=== PATIENT | male | born 1990 | race African-American/Black ===

== ENCOUNTER 2018-07-14 10:52 | Day surgery (SDC) | payer OTHER ==
[2018-07-08 11:07] VITALS: BMI 24.3
[2018-07-14] MEDS ORDERED: CEFAZOLIN 2 GM/50 ML BAG ONE (11:15)
[2018-07-14] MEDS ORDERED: Midazolam HCl 2 mg/2 ml Vial ONE (11:15)
[2018-07-14] MEDS ORDERED: Fentanyl 100 MCG/2 ML VIAL ONE (11:17)
[2018-07-14] MEDS ORDERED: Bupivacaine/Epinephrine 0.25% 30 ML VIAL ONE (11:35)
[2018-07-14] MEDS ORDERED: Bupivacaine PF 0.5% 30 ML VIAL ONE (11:35)
[2018-07-14] MEDS ORDERED: Lidocaine 2% PF 5 ML VIAL ONE (11:36)
[2018-07-14] MEDS ORDERED: Meperidine HCl/PF 25 MG/ML VIAL ONE (13:03)
[2018-07-14] MEDS ORDERED: PROPOFOL 200 MG/20 ML VIAL ONE (15:45)
[2018-07-14] MEDS ORDERED: Ondansetron PF 4 MG/2 ML Vial ONE (15:45)
[2018-07-14] MEDS ORDERED: Dexamethasone 20 MG/5 ML VIAL ONE (15:45)
[2018-07-14] MEDS ORDERED: Lidocaine 1% PF 5 ML VIAL ONE (15:45)
[2018-07-14] MEDS ORDERED: Ketorolac Tromethamine 30 MG/ML VIAL ONE (15:45)
--- NOTE | 2018-07-15 15:53 | OP ---
DATE OF PROCEDURE: 07/14/2018 PREOPERATIVE DIAGNOSIS: Right inguinal hernia. POSTOPERATIVE DIAGNOSIS: Right inguinal hernia. PROCEDURE PERFORMED: Right inguinal hernia repair with mesh PHS extended. ANESTHESIA: General. ESTIMATED BLOOD LOSS: Minimal. COMPLICATIONS: None. SPECIMEN: None. FINDINGS: Right inguinal hernia. DESCRIPTION OF PROCEDURE: The patient was taken to the operating room and laid in the supine position on the operating room table. After general anesthetic was obtained, the right groin and abdomen were shaved, prepped, and draped in a sterile fashion. Oblique incision was made above the pubic tubercle and the right lower quadrant. Cautery was used to dissected down through Al's to expose the external oblique. External oblique fibers were opened along the course of the external ring. The contents in the inguinal canal were dissected from the backside of the external oblique. The ilioinguinal nerve was found and segmentally removed to prevent postop pain. The cord structures were mobilized on the pubic tubercle using a Bradley drain, dissection superiorly on the cord showed there to be an indirect hernia sac. The cord structures were skeletonized and a high ligation of the indirect sac was performed using a silk suture. Stump was inverted back into the internal ring. The preperitoneal space was bluntly dissected to the internal ring. The PHS extended mesh was brought into the sterile field. The underlay was placed in the preperitoneal space through the internal ring and its fibers laid out flat in the preperitoneal space below. The overlay was laid in the floor of the inguinal canal. The overlay was cut laterally to incorporate the internal ring. The overlay was sewn distally to the pubic tubercle, medially to the transverse arch, laterally to the shelving edge of inguinal ligament. The two ends of cut mesh were reapproximated at the shelving edge of inguinal ligament to reform the internal ring. The extra mesh was tacked back into the external oblique proximally. The wound was irrigated. Local anesthetic was applied, tunneled catheter for postop pain was started above the incision and left in top of the mesh for postop pain control. The external oblique was closed using 3-0 Vicryl, Al's closed using 3-0 Vicryl. Skin was closed using running 4-0 Monocryl and Dermabond. The patient was sent to Recovery in stable condition. All instrument counts, needle counts, and lap counts are correct. Job ID: [id number]
== END 2018-07-14 16:20 | disposition home or self-care (01) ==
LOC: SDC 10:52
PROVIDERS: ATTEND Surgery
PROC: 0YU50JZ Supplement Right Inguinal Region with Synthetic Substitute, Open Approach (ICD-10-PCS; principal; 2018-07-14)
DX: K40.90 Unilateral inguinal hernia, without obstruction or gangrene, not specified as recurrent (principal); Z98.890 Other specified postprocedural states
CPT/HCPCS: 96374; A4306; C1781; J1100; J1885; J2001; J2175; J2250; J2405; J2704; J3010; S0020